=== PATIENT | male | born 1955 | race Two or more races ===

== ENCOUNTER 2016-11-16 05:48 | Emergency (ER) | payer MEDICAID ==
[~2016-11-16] VITALS: Ht 167.6 cm; Wt 69.9 kg
[~2016-11-16 05:48] MED LIST: AZITHROMYCIN250 MG ORAL; GABAPENTIN300 MG ORAL; MEDROL DOSEPAK4 MG ORAL; NKM
--- NOTE | 2016-11-16 06:09 | Emergency Room Report ---
History of Present Illness General Chief Complaint: General Complaint Source: Patient (Jose Alberto De La Torre) Present Illness HPI Patient is a 60-year-old male who presented after having increased intermittent left arm numbness. The patient reported having intermittent symptoms but cannot give any details as to what exacerbates relieves the problem. Patient states he has previously had a fall with some left upper extremity injury. Patient states he drinks alcohol daily and usually has approximately 6 beers a day. He denies any fever. He denied vomiting. (Jose Alberto De La Torre) Allergies: Coded Allergies: No Known Allergies (Unverified , 10/24/15) Patient History Past Medical History: see triage record Reviewed Nursing Documentation: PMH: Agreed, PSxH: Agreed (Jose Alberto De La Torre) Nursing Documentation-PMH Past Medical History: No Stated History (WilJose Alberto) Review of Systems All Other Systems: negative except mentioned in HPI (Jose Alberto De La Torre) Physical Exam Vital Signs Date Time Temp Pulse Resp B/P Pulse Ox O2 Delivery O2 Flow Rate FiO2 11/16/16 05:51 97.9 73 18 136/75 100 Room Air Sp02 EP Interpretation: reviewed, normal General Appearance: normal inspection, well appearing, no apparent distress, alert, GCS 15 Head: atraumatic ENT: normal ENT inspection, hearing grossly normal, normal voice Neck: normal inspection, full range of motion, supple, no bony tend Respiratory: normal inspection, lungs clear, normal breath sounds, no respiratory distress, no retraction, no wheezing Cardiovascular #1: regular rate, rhythm, no edema Gastrointestinal: normal inspection, normal bowel sounds, non tender, soft, no guarding, no hernia Genitourinary: no CVA tenderness Musculoskeletal: normal inspection, back normal, normal range of motion Neurologic: normal inspection, alert, oriented x3, responsive, solution analyst III-XII nml as tested, speech normal Psychiatric: normal inspection, judgement/insight normal, mood/affect normal Skin: normal inspection, normal color, no rash (WilJose Alberto) Medical Decision Making Diagnostic Impression: Primary Impression: Arm pain, left Additional Impression: Neuropathy ER Course Patient presented for left arm numbness. Differential diagnosis included but was not limited to acute coronary syndrome, peripheral neuropathy, cervical radiculopathy, brachial plexus injury, multiple sclerosis among others.Because of complexity of patient's case laboratory testing and imaging studies were ordered. EKG interpretation normal sinus rhythm with a rate of [address] or T wave changes. Patient given aspirin empirically. (Jose Alberto De La Torre) ER Course Hospital Course 60-year-old male presents to ED complaining of intermittent left arm numbness and tingling. No chest pain or shortness of breath. Clinical course Patient initially seen and evaluated by Dr. De La Torre; please see his note for full history and physical labs reviewed- all electrolytes normal, troponins negative, no leukocytosis, hemoglobin/hematocrit stable, Utox + THC EKG - NSR, no acute ischemic changes Chest x-ray-no cardiomegaly, no rib fracture, no pneumothorax, no acute process I reviewed EMR patient was here one year ago for similar complaints of left arm numbness. Patient states that he had an injury to his left elbow and is having persistent neuropathy. Patient states he was referred to have an MRI but insurance has not approved yet. patient was prescribed gabapentin at the time. States symptoms did improve somewhat. He will try gabapentin again Given chronicity of symptoms my suspicion for cardiac etiology or other emergent processes is low. I encourage patient to continue referral process for MRI I. I feel this is a highly complex case requiring extensive working including EKG/Rhythm strip, Xray/CT/US, Blood/urine lab work, repeat exams while in ED, and administration of strong opiates/narcotics for pain control, admission to hospital or close patient follow up. Diagnosis - L arm pain Stable and discharged to home with prescription for gabapentin. Instructed to followup with PMD. Return to ED if symptoms recur or worsen Labs Test 11/16/16 06:12 11/16/16 06:18 White Blood Count 6.6 K/UL (4.8-10.8) Red Blood Count 4.59 M/UL (4.70-6.10) Hemoglobin 13.8 G/DL (14.2-18.0) Hematocrit 41.3 % (42.0-52.0) Mean Corpuscular Volume 90 FL (80-99) Mean Corpuscular Hemoglobin 30.1 PG (27.0-31.0) Mean Corpuscular Hemoglobin Concent 33.4 G/DL (32.0-36.0) Red Cell Distribution Width 12.2 % (11.6-14.8) Platelet Count 226 K/UL (150-450) Mean Platelet Volume 8.0 FL (6.5-10.1) Neutrophils (%) (Auto) 62.1 % (45.0-75.0) Lymphocytes (%) (Auto) 24.8 % (20.0-45.0) Monocytes (%) (Auto) 10.1 % (1.0-10.0) Eosinophils (%) (Auto) 1.6 % (0.0-3.0) Basophils (%) (Auto) 1.4 % (0.0-2.0) Sodium Level 140 mEQ/L (135-145) Potassium Level 3.5 mEQ/L (3.4-4.9) Chloride Level 100 mEQ/L (98-107) Carbon Dioxide Level 27 mEQ/L (20-30) Anion Gap 13 (5-15) Blood Urea Nitrogen 11 mg/dL (7-23) Creatinine 1.0 mg/dL (0.7-1.2) Estimat Glomerular Filtration Rate > 60 mL/min (>60) Glucose Level 102 mg/dL (74-106) Calcium Level 8.6 mg/dL (8.6-10.2) Total Bilirubin 0.4 mg/dL (0.0-1.2) Aspartate Amino Transf (AST/SGOT) 76 U/L (5-40) Alanine Aminotransferase (ALT/SGPT) 50 U/L (3-41) Alkaline Phosphatase 66 U/L (40-129) Total Creatine Kinase 505 U/L (38-174) Creatine Kinase MB 6.0 ng/mL (< 6.7) Creatine Kinase MB Relative Index 1.1 Troponin I < 0.30 ng/mL (<=0.30) Pro-B-Type Natriuretic Peptide 145 pg/mL (0-125) Total Protein 6.5 g/dL (6.6-8.7) Albumin 3.9 g/dL (3.5-5.2) Globulin 2.6 g/dL Albumin/Globulin Ratio 1.5 (1.0-2.7) Lipase 31 U/L (< 60) Serum Alcohol < 10 mg/dL Urine Opiates Screen Negative (NEGATIVE) Urine Barbiturates Screen Negative (NEGATIVE) Phencyclidine (PCP) Screen Negative (NEGATIVE) Urine Amphetamines Screen Negative (NEGATIVE) Urine Benzodiazepines Screen Negative (NEGATIVE) Urine Cocaine Screen Negative (NEGATIVE) Urine Marijuana (THC) Screen Positive (NEGATIVE) (TRAV LO M.D.) EKG Diagnostic Results Rate: normal Rhythm: NSR - 69 ST Segments: no acute changes (Jose Alberto De La Torre) Rate: normal Rhythm: NSR ST Segments: no acute changes ASA given to the pt in ED: No (TRAV LO M.D.) Rhythm Strip Diag. Results EP Interpretation: yes Rhythm: NSR, no PVC's, no ectopy (TRAV LO M.D.) Chest X-Ray Diagnostic Results EP Interpretation: Yes Findings: no consolidation, no effusion, no pneumothorax, no acute cardiopulmonary disease Number of Views: 1 (TRAV LO M.D.) Last Vital Signs Date Time Temp Pulse Resp B/P Pulse Ox O2 Delivery O2 Flow Rate FiO2 11/16/16 05:51 97.9 73 18 136/75 100 Room Air Status: improved (Jose Alberto De La Torre) Status: improved (TRAV LO M.D.) Disposition: HOME, SELF-CARE Condition: Stable Scripts Gabapentin* (GABAPENTIN*) 300 Mg Capsule 300 MG ORAL THREE TIMES A DAY, #30 CAP 0 Refills Prov: TRAV LO M.D. 11/16/16 Jose Alberto De La Torre Nov 16, 2016 06:09 TRAV LO M.D. Nov 16, 2016 08:02
[2016-11-16] MEDS ORDERED: Aspirin Baby 81mg ORAL ONE (06:15)
[2016-11-16 06:19] VITALS: BP 134/75
[2016-11-16] MEDS ORDERED: NKM (06:21)
[2016-11-16 06:38] LABS: BASOPHILS % (AUTO) 1.4 % (0.0-2.0); EOSINOPHILS % (AUTO) 1.6 % (0.0-3.0); LYMPHOCYTES % (AUTO) 24.8 % (20.0-45.0); MEAN CORPUSCULAR HEMOGLOBIN 30.1 PG (27.0-31.0); MEAN CORPUSCULAR HGB CONC 33.4 G/DL (32.0-36.0); MEAN CORPUSCULAR VOLUME 90 FL (80-99); MONOCYTES % (AUTO) 10.1 % (1.0-10.0); NEUTROPHILS % (AUTO) 62.1 % (45.0-75.0); PLATELET COUNT 226 K/UL (150-450); RED BLOOD COUNT 4.59 M/UL (4.70-6.10); RED CELL DISTRIBUTION WIDTH 12.2 % (11.6-14.8); WHITE BLOOD COUNT 6.6 K/UL (4.8-10.8)
[2016-11-16 06:52] LABS: ALANINE AMINOTRANSFERASE 50 U/L (3-41); ALBUMIN/GLOBULIN RATIO 1.5 (1.0-2.7); ANION GAP 13 (5-15); ASPARTATE AMINO TRANSFERASE 76 U/L (5-40); CALCIUM 8.6 mg/dL (8.6-10.2); CARBON DIOXIDE 27 mEQ/L (20-30); CHLORIDE 100 mEQ/L (98-107); GLOMERULAR FILTRATION RATE > 60 mL/min (>60); HEMOLYSIS 5; LIPASE 31 U/L (< 60); POTASSIUM 3.5 mEQ/L (3.4-4.9); SODIUM 140 mEQ/L (135-145); TOTAL PROTEIN 6.5 g/dL (6.6-8.7)
[2016-11-16 06:53] LABS: TROPONIN I < 0.30 ng/mL (<=0.30)
[2016-11-16] MEDS ORDERED: GABAPENTIN300 MG ORAL (07:21)
[2016-11-16 07:23] VITALS: BP_SYST 130; BP_SYST 134; BP_DIAS 72; BP_DIAS 75
--- NOTE | 2016-11-16 08:32 | Diagnostic Imaging Report ---
Indication: Shortness of breath Technique: Single portable AP view of the chest. Findings: Comparison: 10/24/2015 The bones and extra pulmonary soft tissues, cardiomediastinal silhouette, pulmonary vasculature and parenchyma, and pleural surfaces remain unremarkable. IMPRESSION: Negative portable AP chest, unchanged.
--- NOTE | 2016-11-17 18:50 | Cardiology Report ---
APPROVED REPORT EKG Measurement Heart [id number] Normal sinus rhythm Normal ECG
== END 2016-11-16 07:24 | disposition home or self-care (01) ==
LOC: EMR 06:05
DX: G62.9 Polyneuropathy, unspecified (principal); M79.602 Pain in left arm
CPT/HCPCS: 36415; 71010; 80053; 80300; 80329; 82550; 82553; 83690; 83880; 84484; 85025; 93005; 99283